=== PATIENT | male | born 1970 | race Caucasian/White ===

== ENCOUNTER 2024-01-30 19:52 | Observation (INO) | payer OTHER ==
[2024-01-30] MEDS ORDERED: ALBUTEROL SO4 2.5/IPRATROPIUM 0.5 INH SOL 3 ML VIAL.NEB. NEB ONE ×2 (21:21→22:03)
[2024-01-30] MEDS: ALBUTEROL SO4 2.5/IPRATROPIUM 0.5 INH SOL 3 ML VIAL.NEB. NEB SCH (21:38)
[2024-01-30 22:06] LABS: BASO % 0.6 % (0-2.0); HEMATOCRIT 42.1 % (35.4-49); HEMOGLOBIN 14.1 GM/dL (11.7-16.9); LYMPH % 44.7 % (8-40); MCH 28.6 pg (25.7-33.7); MCHC 33.4 g/dl (32.0-35.9); MEAN CELL VOLUME 85.5 fl (80-96); MEAN PLT VOLUME 8.1 fl (7.5-11.1); MONO % 9.7 % (3.8-10.2); PLATELET COUNT 165 10^3/uL (134-434); RBC 4.92 M/mm3 (4.00-5.60); RDW 13.7 % (11.9-15.9); WHITE BLOOD COUNT 5.4 K/mm3 (4.0-10.0)
[2024-01-30 22:12] LABS: INR 1.06 (0.83-1.09); PROTHROMBIN TIME (PATIENT) 12.3 SEC (9.7-13.0)
[2024-01-30 22:15] LABS: ACTIVATED PTT 32.8 SECONDS (25.2-36.5)
[2024-01-30 22:20] LABS: VENOUS BASE EXCESS 0.7 mmol/L (-2-2); VENOUS O2 SATURATION 59.4 % (70-80); VENOUS PCO2 34.1 mmHg (38-52); VENOUS PH 7.463 (7.310-7.410)
[2024-01-30 22:25] LABS: POTASSIUM 4.7 mmol/L (3.5-5.1)
[2024-01-30 22:27] LABS: ALBUMIN 3.7 g/dl (3.4-5.0); BLOOD UREA NITROGEN 14.1 mg/dL (7-18); CALCIUM 9.3 mg/dL (8.5-10.1)
[2024-01-30] MEDS ORDERED: CEFTRIAXONE 1 GM/50 ML BAG ONE (22:29)
[2024-01-30 22:30] LABS: CREATININE 0.8 mg/dL (0.55-1.3)
[2024-01-30 22:32] LABS: BILIRUBIN,TOTAL 0.5 mg/dL (0.2-1); TOT PROT 8.2 g/dl (6.4-8.2)
[2024-01-30] MEDS ORDERED: AZITHROMYCIN IVPB 500 MG/250 ML BAG IVPB ONE (23:19)
[2024-01-30] MEDS: AZITHROMYCIN IVPB 500 MG in DEXTROSE 5%-WATER - 250 ML IVPB ONE (23:28)
[2024-01-31] MEDS ORDERED: ALBUTEROL SO4 0.083% IH SOL 2.5 MG/3 ML VIAL.NEB. NEB PRN (00:43)
[2024-01-31] MEDS ORDERED: ACETAMINOPHEN 325 MG TABLET (FP) PO PRN (02:09)
[2024-01-31] MEDS: methylPREDNISolone NA SUCC 40 MG/1 ML VIAL IVPUSH ONE (02:19)
[2024-01-31 05:14] VITALS: BMI 39.4
[2024-01-31] MEDS: metFORMIN HCL 500 MG TABLET (FP) PO SCH (07:21)
[2024-01-31 08:24] LABS: POTASSIUM 4.2 mmol/L (3.5-5.1)
[2024-01-31 08:25] LABS: CALCIUM 8.9 mg/dL (8.5-10.1)
[2024-01-31 08:26] LABS: BLOOD UREA NITROGEN 12.9 mg/dL (7-18)
[2024-01-31 08:29] LABS: CREATININE 0.8 mg/dL (0.55-1.3)
[2024-01-31 08:34] LABS: BASO % 0.1 % (0-2.0); EOS % 0.1 % (0-4.5); HEMATOCRIT 38.6 % (35.4-49); HEMOGLOBIN 13.3 GM/dL (11.7-16.9); LYMPH % 12.8 % (8-40); MCH 29.4 pg (25.7-33.7); MCHC 34.3 g/dl (32.0-35.9); MEAN CELL VOLUME 85.6 fl (80-96); MEAN PLT VOLUME 8.7 fl (7.5-11.1); PLATELET COUNT 157 10^3/uL (134-434); RBC 4.52 M/mm3 (4.00-5.60); RDW 13.5 % (11.9-15.9); WHITE BLOOD COUNT 4.3 K/mm3 (4.0-10.0)
[2024-01-31] MEDS: ENOXAPARIN NA (PORCINE) 40 MG/0.4 ML DISP.SYRIN SQ SCH (09:03)
[2024-01-31] MEDS: guaiFENesin 200 MG/10 ML 10 ML UNIT-DOSE CUPS PO PRN (09:04)
[2024-01-31] MEDS: LISINOPRIL 20 MG TABLET PO SCH (09:04)
[2024-01-31] MEDS: FLU VACCINE (FLULAVAL) PF 60 MCG/0.5 ML SYRINGE 2023-2024 IM ONE (10:03)
[2024-01-31] MEDS: INSULIN ASPART SLIDING SCALE (NOVOLOG) 1 VIAL SQ SCH (16:19)
[2024-01-31] MEDS: ROSUVASTATIN CA 10 MG TABLET PO SCH (22:22)
[2024-01-31] MEDS: CEFTRIAXONE 1 GM in DEXTROSE 5%-WATER - 50 ML IVPB SCH (22:22)
[2024-01-31] MEDS: AZITHROMYCIN IVPB 500 MG/250 ML BAG IVPB SCH (23:10)
[2024-02-01 14:47] LABS: PH,URINE 5.5 (5.0-8.0); URINE APPEARANCE CLEAR; URINE BILIRUBIN NEGATIVE (NEGATIVE); URINE COLOR YELLOW; URINE GLUCOSE (UA) NEGATIVE (NEGATIVE); URINE KETONE NEGATIVE (NEGATIVE); URINE LEUK ESTERASE NEGATIVE (NEGATIVE); URINE NITRITE NEGATIVE (NEGATIVE); URINE PROTEIN NEGATIVE (NEGATIVE); URINE UROBILINOGEN 0.2 mg/dL (0.2-1.0)
[2024-02-02 04:41] VITALS: RESP 18
[2024-02-02 08:17] LABS: BASO % 0.5 % (0-2.0); EOS % 1.7 % (0-4.5); HEMATOCRIT 38.2 % (35.4-49); HEMOGLOBIN 12.9 GM/dL (11.7-16.9); MCH 28.7 pg (25.7-33.7); MCHC 33.8 g/dl (32.0-35.9); MEAN CELL VOLUME 85.1 fl (80-96); MONO % 8.6 % (3.8-10.2); NEUT % 55.2 % (42.8-82.8); PLATELET COUNT 185 10^3/uL (134-434); RDW 13.3 % (11.9-15.9)
[2024-02-02 08:25] LABS: INR 1.1 (0.83-1.09); PROTHROMBIN TIME (PATIENT) 12.7 SEC (9.7-13.0)
[2024-02-02 08:27] LABS: ACTIVATED PTT 31.9 SECONDS (25.2-36.5)
[2024-02-02 08:49] VITALS: BP 124/93; PULSE 78; TEMP 98.4
[2024-02-02 08:56] LABS: POTASSIUM 4.1 mmol/L (3.5-5.1)
[2024-02-02 09:04] LABS: CALCIUM 8.8 mg/dL (8.5-10.1)
[2024-02-02 09:05] LABS: ALBUMIN 3.6 g/dl (3.4-5.0); BLOOD UREA NITROGEN 13.6 mg/dL (7-18); MAGNESIUM 2.3 mg/dL (1.8-2.4)
[2024-02-02 09:08] LABS: CREATININE 0.8 mg/dL (0.55-1.3); PHOSPHOROUS 3.8 mg/dL (2.5-4.9)
[2024-02-02 09:09] LABS: BILIRUBIN,TOTAL 0.6 mg/dL (0.2-1); TOT PROT 7.2 g/dl (6.4-8.2)
[2024-02-02] MEDS: AZITHROMYCIN 250 MG TABLET PO SCH (09:13)
== END 2024-02-02 13:32 | disposition home or self-care (01) ==
LOC: JER 19:52 → JERBED 22:13 → J6S 01-31 01:25
PROVIDERS: ADMIT Internal Medicine; ATTEND Internal Medicine
PROC: 3E0F7GC Introduction of Other Therapeutic Substance into Respiratory Tract, Via Natural or Artificial Opening (ICD-10-PCS; principal; 2024-01-30)
PROC: 3E03329 Introduction of Other Anti-infective into Peripheral Vein, Percutaneous Approach (ICD-10-PCS; 2024-01-30)
PROC: 3E023GC Introduction of Other Therapeutic Substance into Muscle, Percutaneous Approach (ICD-10-PCS; 2024-01-30)
PROC: 3E033GC Introduction of Other Therapeutic Substance into Peripheral Vein, Percutaneous Approach (ICD-10-PCS; 2024-01-30)
DX: J18.9 Pneumonia, unspecified organism (principal); J98.19 Other pulmonary collapse; G47.33 Obstructive sleep apnea (adult) (pediatric); I10 Essential (primary) hypertension; E11.9 Type 2 diabetes mellitus without complications; E78.5 Hyperlipidemia, unspecified; Z23 Encounter for immunization; E66.9 Obesity, unspecified; Z88.8 Allergy status to other drugs, medicaments and biological substances; Z91.018 Allergy to other foods; R60.0 Localized edema
CPT/HCPCS: 0241U-QW; 36415; 71046-TC-FY; 71250-TC; 80048; 80053; 81003; 82308; 82803; 82962; 83735; 83880; 84100; 84484; 85025; 85610; 85730; 87040; 87070; 87205; 87899; 90686; 93005; 93010; 94010; 94640; 94660; 96365; 96368; 96372; 96375; 99285-25; G0008; G0378